=== PATIENT | male | born 1950 | race Caucasian/White ===

== ENCOUNTER → 2018-04-09 | Outpatient (CLI) | payer MEDICARE, BC ==
--- NOTE | 2018-04-09 13:09 | Diagnostic Imaging Report ---
INDICATION: Non-Hodgkin's lymphoma, restaging and subsequent treatment strategy. TECHNIQUE: Serum blood glucose level at the time of injection was 112 mg/dL. The patient was administered 12.6 mCi of F-18 FDG intravenously, administered in the right antecubital location, and PET imaging from the top of the skull to the mid thighs was performed. Noncontrast CT was also performed for attenuation correction and anatomic correlation. COMPARISON: Correlation is made with outside PET/CT from [facility] performed on 07/03/2017. FINDINGS: There is symmetric activity throughout the brain. There are multiple hypermetabolic lymph nodes within the neck. Submental and submandibular lymph nodes are again noted. A left submandibular hypermetabolic node appears more prominent than outside study, with SUV max of 7.5. There are metabolic level II lymph nodes bilaterally as well as metabolic posterior cervical lymph nodes bilaterally. The level II and posterior cervical nodes do appear to be more metabolic than outside exam. A right posterior cervical node demonstrates an SUV max of approximately 6.4. Activity in the lower neck adjacent to the thyroid is also seen, similar to prior exam. Right paratracheal node demonstrates an SUV max of approximately 6.3. This was present on outside exam. The remainder of the mediastinum and ana luisa are unremarkable. Abdomen and pelvis demonstrate physiologic activity in the GI and tracts. There is some [id number] uptake involving the central retroperitoneal nodes. A node in the left periaortic region just below the level of the left kidney lower pole is seen demonstrating an SUV max of approximately 5.9. This was present on outside PET scan. No significant hypermetabolism in the pelvis is identified. IMPRESSION: There are multiple hypermetabolic lymph nodes in the neck as well as right paratracheal and central retroperitoneum. Overall appearance appears to be similar to the outside PET/CT from 07/03/2017, although lymph nodes in the neck do visually appear to be slightly more hypermetabolic on today's exam when compared with outside study. Dictated by: Dictated on workstation # [id number]
== END ==
LOC: RAD 07:50
PROVIDERS: ATTEND Internal Medicine Hematology & Oncology
DX: C85.90 Non-Hodgkin lymphoma, unspecified, unspecified site (principal)